=== PATIENT | male | born 1965 | race African-American/Black ===

== ENCOUNTER 2023-08-09 14:40 | Inpatient (IN) | payer MEDICARE, MEDICAID ==
--- NOTE | 2023-08-09 17:10 | ED ---
Psych HPI - General Chief Complaint: Psychiatric Symptoms Stated Complaint: Mental Health Eval Time Seen by Provider: 08/09/23 14:50 Source: patient, EMS Mode of arrival: EMS - History of Present Illness Initial Comments: 58-year-old male who presents to the emergency department with delusional ideations. Patient being from [facility] that he has been evaluated and did require inpatient admission. Patient presents to the ER via EMS with a petition and CERT in hand. Patient has not been taking his medications. They state that he is delusional and thinks that the hospital is run by [facility]. Patient states that he has multiple lawsuits different organizations that he does not feel that he needs to be here. He admits to being homeless. Denies drug and alcohol use. Patient has history of hypertension but does not take his medications. - Related Data Home Medications Medication Instructions Recorded Confirmed Cyclobenzaprine [Flexeril] 10 mg PO Q8H PRN 08/09/23 08/09/23 Fluticasone Nasal [place] [Flonase 2 spray EA NOSTRIL DAILY 08/09/23 08/09/23 Nasal [place]] Promethazine 6.25MG/5Ml [Phenergan 25 mg PO DAILY 08/09/23 08/09/23 Syrup] Previous Rx's Medication Instructions Recorded QUEtiapine [SEROquel] 100 mg PO HS 15 Days #15 tab 08/14/23 Valproic Acid Oral Soln [Depakene 150 mg PO TID 15 Days #45 ml 08/14/23 Syrup] Allergies Allergy/AdvReac Type Severity Reaction Status Date / Time fluoxetine [From Prozac] Allergy Rash/Hives Verified 08/09/23 23:46 fluphenazine [From Prolixin] Allergy Rash/Hives Verified 08/09/23 23:46 risperidone [From Risperdal] Allergy Rash/Hives Verified 08/09/23 23:46 Review of Systems ROS Statement: Those systems with pertinent positive or pertinent negative responses have been documented in the HPI. ROS Other: All systems not noted in ROS Statement are negative. Past Medical History Past Medical History: Hypertension Additional Past Medical History / Comment(s): Heart diease History of Any Multi-Drug Resistant Organisms: None Reported Past Surgical History: No Surgical Hx Reported Past Psychological History: Bipolar, Schizoaffective Disorder Smoking Status: Current every day smoker Past Alcohol Use History: Daily Past Drug Use History: Cocaine - Past Family History Mother History Unknown: Yes General Exam Limitations: no limitations General appearance: alert, in no apparent distress Head exam: Present: atraumatic, normocephalic, normal inspection Eye exam: Present: normal appearance, PERRL, EOMI. Absent: scleral icterus, conjunctival injection, periorbital swelling ENT exam: Present: normal exam, mucous membranes moist Neck exam: Present: normal inspection. Absent: tenderness, meningismus, lymphadenopathy Respiratory exam: Present: normal lung sounds bilaterally. Absent: respiratory distress, wheezes, rales, rhonchi, stridor Cardiovascular Exam: Present: regular rate, normal rhythm, normal heart sounds. Absent: systolic murmur, diastolic murmur, rubs, gallop, clicks GI/Abdominal exam: Present: soft, normal bowel sounds. Absent: distended, tenderness, guarding, rebound, rigid Extremities exam: Present: normal inspection, full ROM, normal capillary refill. Absent: tenderness, pedal edema, joint swelling, calf tenderness Back exam: Present: normal inspection Neurological exam: Present: alert, oriented X3, CN II-XII intact Psychiatric exam: Present: agitated, other (delusional) Skin exam: Present: warm, dry, intact, normal color. Absent: rash Course Vital Signs 08/09/23 08/09/23 08/09/23 14:44 19:18 21:29 Temperature 97.4 F L Pulse Rate 57 L 84 74 Respiratory 16 18 18 Rate Blood Pressure 183/86 145/100 147/111 O2 Sat by Pulse 97 98 95 Oximetry 08/09/23 22:26 Temperature Pulse Rate 64 Respiratory 18 Rate Blood Pressure 151/97 O2 Sat by Pulse 97 Oximetry Medical Decision Making - Medical Decision Making Was pt. sent in by a medical professional or institution (, PA, BILLBOARD ERECTOR, urgent care, hospital, or fpc...) When possible be specific @ -Patient sent from [facility] Did you speak to anyone other than the patient for history (EMS, parent, family, police, friend...)? What history was obtained from this source @ -Spoke with EMS for history Did you review nursing and triage notes (agree or disagree)? Why? @ -I reviewed and agree with nursing and triage notes Were old charts reviewed (outside hosp., previous admission, EMS record, old EKG, old radiological studies, urgent care reports/EKG's, fpc records)? Report findings @ -I reviewed the chart that accompanies the patient from [facility]. Patient arrives with a petition and certification Differential Diagnosis (chest pain, altered mental status, abdominal pain women, abdominal pain men, vaginal bleeding, weakness, fever, dyspnea, syncope, headache, dizziness, GI bleed, back pain, seizure, CVA, palpatations, mental health, musculoskeletal)? @ -Differential Mental Health Depression, anxiety, bipolar, psychosis, schizophrenia, borderline personality, situational depression, adjustment disorder, behavioral disorder, brain tumor, malingering, substance abuse, encephalopathy, medication reaction, dementia, hypothyroidism, degenerative neurologic disorder, lupus.... This is not meant to be all-inclusive list EKG interpreted by me (3pts min.). @ -Not completed X-rays interpreted by me (1pt min.). @ -None done CT interpreted by me (1pt min.). @ -None done U/S interpreted by me (1pt. min.). @ -None done What testing was considered but not performed or refused? (CT, X-rays, U/S, labs)? Why? @ -None What meds were considered but not given or refused? Why? @ -None Did you discuss the management of the patient with other professionals (professionals i.e. , PA, BILLBOARD ERECTOR, lab, RT, psych nurse, social services analyst, field sales trainer, teacher, morale officer, director of casework)? Give summary @ -Spoke with the EPS nurse who will admit the patient to a floor Was smoking cessation discussed for >3mins.? @ -No Was critical care preformed (if so, how long)? @ -No Were there social determinants of health that impacted care today? How? (Homelessness, low income, unemployed, alcoholism, drug addiction, transportation, low edu. Level, literacy, decrease access to med. care, nursing home, rehab)? @ -No Was there de-escalation of care discussed even if they declined (Discuss DNR or withdrawal of care, Hospice)? DNR status @ -No What co-morbidities impacted this encounter? (DM, HTN, Smoking, COPD, CAD, Cancer, CVA, ARF, Chemo, Hep., AIDS, mental health diagnosis, sleep apnea, m orbid obesity)? @ -None Was patient admitted / discharged? Hospital course, mention meds given and route, prescriptions, significant lab abnormalities, going to OR and other pertinent info. @ -Upon arrival patient seen and evaluated in room 11. He does arrive with a petition and a certification. Patient does have hypertension and therefore I do administer hypertension medications. Patient is excepted to the floor Undiagnosed new problem with uncertain prognosis? @ -No Drug Therapy requiring intensive monitoring for toxicity (Heparin, Nitro, Insulin, Cardizem)? @ -No Were any procedures done? @ -No Diagnosis/symptom? @ -Acute delusional behavior Acute, or Chronic, or Acute on Chronic? @ -Acute Uncomplicated (without systemic symptoms) or Complicated (systemic symptoms)? @ -Complicated Side effects of treatment? @ -No Exacerbation, Progression, or Severe Exacerbation? @ -No Poses a threat to life or bodily function? How? (Chest pain, USA, DC, pneumonia, PE, COPD, DKA, ARF, appy, cholecystitis, CVA, Diverticulitis, Homicidal, Suicidal, threat to staff... and all critical care pts) @ -No - Lab Data Result diagrams: 08/10/23 11:55 08/10/23 11:55 Lab Results 08/09/23 Range/Units 15:50 SARS-CoV-2 (PCR) Not Detected (Not Detectd) Disposition Clinical Impression: Paranoid disorder Disposition: TRANSFER TO PSYCH HOSP/UNIT Condition: Stable Is patient prescribed a controlled substance at d/c from ED?: No
[2023-08-09] MEDS: LORazepam 1 MG TAB PO STA (19:18)
[2023-08-09] MEDS ORDERED: MAGNESIUM HYDROXIDE 2,400 MG/30 ML CUP PO PRN (19:30)
[2023-08-09] MEDS ORDERED: ACETAMINOPHEN TAB 325 MG TAB PO PRN (19:30)
[2023-08-09] MEDS ORDERED: OLANZapine 10 MG VIAL IM PRN (19:33)
[2023-08-09] MEDS: amLODIPine 10 MG TAB PO STA (20:24)
[2023-08-09] MEDS: amLODIPine 5 MG TAB PO STA (20:51)
[2023-08-09] MEDS: cloNIDine HCL 0.1 MG TAB PO STA (21:53)
--- NOTE | 2023-08-10 00:45 | P.PN ---
Progress Note - Text Progress Note Date: 08/10/23 Attempted to see the patient in the mental health unit at 2100 on 08/08. The patient refused to be seen or be evaluated.
[2023-08-10] MEDS: NICOTINE 14MG/24HR PATCH TRANSDERM SCH (09:04)
[2023-08-10] MEDS ORDERED: hydrOXYzine pamoate 25 MG CAP PO PRN (10:47)
[2023-08-10 12:36] LABS: Basophils % (A) 1 %; Eosinophils # (A) 0.2 k/uL (0-0.7); Eosinophils % (A) 5 %; HCT 41.1 % (39.0-53.0); Lymphocytes # (A) 1.6 k/uL (1.0-4.8); Lymphocytes % (A) 37 %; MCHC 31.6 g/dL (31.0-37.0); MCV 95.1 fL (80.0-100.0); Mean Platelet Volume 7.9; Monocytes # (A) 0.4 k/uL (0-1.0); Monocytes % (A) 8 %; Neutrophils # (A) 2.1 k/uL (1.3-7.7); Neutrophils % (A) 48 %; Platelet Count 200 k/uL (150-450); RBC 4.33 m/uL (4.30-5.90); RDW 14.2 % (11.5-15.5); WBC 4.3 k/uL (3.8-10.6)
[2023-08-10] MEDS: LORazepam 1 MG TAB PO PRN (12:40)
[2023-08-10 13:06] LABS: ALT 11 U/L (4-49); AST 15 U/L (17-59); African American GFR (CKD) >90 (>60 ml/min/1.73 sqM); Alkaline Phosphatase 65 U/L (38-126); Anion Gap 4 mmol/L; Blood Urea Nitrogen 13 mg/dL (9-20); Calcium 9.1 mg/dL (8.4-10.2); Carbon Dioxide 29 mmol/L (22-30); Chloride 107 mmol/L (98-107); Glucose 73 mg/dL (74-99); Non-African American GFR(CKD) >90 (>60 ml/min/1.73 sqM); Potassium 4.6 mmol/L (3.5-5.1); Sodium 140 mmol/L (137-145); Total Bilirubin 0.3 mg/dL (0.2-1.3); Total Protein 6.3 g/dL (6.3-8.2)
--- NOTE | 2023-08-10 13:33 | P.HP ---
Psychiatric H&P - . H&P Date: 08/10/23 History & Physical: Allergies Allergy/AdvReac Type Severity Reaction Status Date / Time fluoxetine [From Prozac] Allergy Rash/Hives Verified 08/09/23 23:46 fluphenazine [From Prolixin] Allergy Rash/Hives Verified 08/09/23 23:46 risperidone [From Risperdal] Allergy Rash/Hives Verified 08/09/23 23:46 Vital Signs Temp 98.0 F 08/09/23 23:30 Pulse 61 08/10/23 09:05 Resp 20 08/10/23 09:05 BP 133/88 08/10/23 09:05 Pulse Ox 99 08/09/23 23:30 FiO2 Intake & Output 08/09/23 08/10/23 08/10/23 18:59 06:59 18:59 Weight 79.379 kg 83.2 kg Laboratory Last Values WBC 4.3 k/uL (3.8-10.6) 08/10/23 11:55 RBC 4.33 m/uL (4.30-5.90) 08/10/23 11:55 Hgb 13.0 gm/dL (13.0-17.5) 08/10/23 11:55 Hct 41.1 % (39.0-53.0) 08/10/23 11:55 MCV 95.1 fL (80.0-100.0) 08/10/23 11:55 MCH 30.0 pg (25.0-35.0) 08/10/23 11:55 MCHC 31.6 g/dL (31.0-37.0) 08/10/23 11:55 RDW 14.2 % (11.5-15.5) 08/10/23 11:55 Plt Count 200 k/uL (150-450) 08/10/23 11:55 MPV 7.9 08/10/23 11:55 Neutrophils % 48 % 08/10/23 11:55 Lymphocytes % 37 % 08/10/23 11:55 Monocytes % 8 % 08/10/23 11:55 Eosinophils % 5 % 08/10/23 11:55 Basophils % 1 % 08/10/23 11:55 Neutrophils # 2.1 k/uL (1.3-7.7) 08/10/23 11:55 Lymphocytes # 1.6 k/uL (1.0-4.8) 08/10/23 11:55 Monocytes # 0.4 k/uL (0-1.0) 08/10/23 11:55 Eosinophils # 0.2 k/uL (0-0.7) 08/10/23 11:55 Basophils # 0.0 k/uL (0-0.2) 08/10/23 11:55 Sodium 140 mmol/L (137-145) 08/10/23 11:55 Potassium 4.6 mmol/L (3.5-5.1) 08/10/23 11:55 Chloride 107 mmol/L (98-107) 08/10/23 11:55 Carbon Dioxide 29 mmol/L (22-30) 08/10/23 11:55 Anion Gap 4 mmol/L 08/10/23 11:55 BUN 13 mg/dL (9-20) 08/10/23 11:55 Creatinine 0.87 mg/dL (0.66-1.25) 08/10/23 11:55 Est GFR (CKD-EPI)AfAm >90 (>60 ml/min/1.73 sqM) 08/10/23 11:55 Est GFR (CKD-EPI)NonAf >90 (>60 ml/min/1.73 sqM) 08/10/23 11:55 Glucose 73 mg/dL (74-99) L 08/10/23 11:55 Calcium 9.1 mg/dL (8.4-10.2) 08/10/23 11:55 Total Bilirubin 0.3 mg/dL (0.2-1.3) 08/10/23 11:55 AST 15 U/L (17-59) L 08/10/23 11:55 ALT 11 U/L (4-49) 08/10/23 11:55 Alkaline Phosphatase 65 U/L (38-126) 08/10/23 11:55 Total Protein 6.3 g/dL (6.3-8.2) 08/10/23 11:55 Albumin 4.0 g/dL (3.5-5.0) 08/10/23 11:55 TSH 1.770 mIU/L (0.465-4.680) 08/10/23 11:55 SARS-CoV-2 (PCR) Not Detected (Not Detectd) 08/09/23 15:50 08/10/23 13:32 Psychiatric Evaluation Identifying Data: Mr. Cunningham is 58 years old, single Black Male, who is currently homeless. Chief Complaint: I have multiple law suits all over the country History of Psychiatric Illness- The patient noted that [facility] and [facility] Santiago. He noted that he never said he was homeless but he sent him here. The patient noted that he just wanted to go to sober support so he could smoke. He noted seeing Dr. Santiago twice. He believes that Dr. Santiago is jealous of him. The patient noted that he was taking Seroquel, Depakote, Xanax, Adderall, and Valium. He has not taken his medications for months. He stated that he was going to [facility] for his treatment. He noted that a [employer] shipping point inspector is trying to kill him. The patient was a poor historian. He could not give a proper chronological history. He was preoccupied with law suits and being victimized. The patient noted, I had a chemical imbalance since age 17, a oriental doctor told me. He noted that he has been hospitalized to psychiatric hospital at least 15 to 20 times. The last admission was in [facility] a month ago. The patient noted that his first admission was at age 22. He noted that he was at [facility] few times. He was also at [facility] in [place] and [facility]. He stated that he has been told that he has psychosis but he has been on TV and now, I have all these cases. Past medication history: Prolixin, Prozac, Haldol, Geodon, Zyprexa. He stated all the medication he takes gives him allergy. Past Psychiatric History: Leading questions: The patient denied /admitted to Depression and Anxiety. Denied SI or HI. Denied symptoms consistent with psychosis Drugs and alcohol history: Crack, Alcohol marijuana Tobacco use: Smokes half a pack a day. Past Medical history: HTN Family History of Psychiatric Disorder: The patient noted we all are crazy in my family. Social History and Family History: The patient was born and raised in [place], [place]. He grew-up 5 siblings. He has GED. His longest job was for 2 years in the [employer] department of [employer]. The patient noted that he has been in correction twice for possession of crack. OTC: None. Allergies: As per EMR. Objective: MSE: Alert and attentive. Orientation times three Dressed and Groomed: Appropriately in hospital clothes. Pleasant and cooperative. Psychomotor Activity: Normal. Speech: Normal in tone, quality, Hyperverbal. Mood: I am alright Affect: Excited and suspicious. SI or HI: None. Perceptual disturbance: None. Thought Content: He is paranoid and grandiose. No other delusional thinking noted. Thought Process: Normal. Cognition: Intact Judgment and Insight: Poor AIMS: Normal Labs: Available labs reviewed. Diagnosis: Paranoid Disorder, Persecutory type. Plan and Recommendations: Continue current Medications. Add Ativan 0.5 mg po tid prn. Hydroxyzine 25 mg po prn qid, Seroquel 00 mg po qhs, Depakote Monitor MS and side effects of medications and adjust medications accordingly. Provide supportive psychotherapy and psychoeducation. The patient provided psychoeducation. The patient provided with substance abuse counselling and advised to attend AA/NA Smoke cessation therapy. The patient to attend [facility]. CBC with Diff, CMP, TSH, Lipid Profile, HbA1c, EKG, Medication Consent with explanation of risk/benefits and side effects: Explained and obtained.
[2023-08-10 19:15] LABS: Chol/HDL Ratio 2.57 Ratio; LDL Cholesterol,Calculated 77.4 mg/dL (0.0-131.0)
[2023-08-10] MEDS: QUEtiapine 100 MG TAB PO SCH (21:11)
[2023-08-10] MEDS: VALPROIC ACID ORAL SOLN 250 MG/5 ML CUP PO SCH (21:11)
[2023-08-11] MEDS: IBUPROFEN 600 MG TAB PO PRN (07:06)
--- NOTE | 2023-08-11 15:34 | P.PN ---
Progress Note - Text Progress Note Date: 08/11/23 Follow-up Mediation Review Chief Complaint: I want enema Subjective: The patient that he is not getting enema. He stated that he takes his own enema. The patient redirected and suggested to take the Milk of magnesia instead. The patient agreed. He remains with writing his petitions and complaints. He [facility] complaint [facility]. He has also filed several complaints and law suits in different cities as per patient. He showed me lots of his complains. 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 He stated, I want that new medication, which has a long name. It will be very good for me. The patient has been attending the groups. The participation is fair. His interaction with staff and peers is good. The patient is compliant with treatment recommendations. Leading questions: The patient denied Depression and Anxiety. Denied SI or HI. Denied symptoms consistent with psychosis. Sleep and Appetite: Fair. Change in family/ living/job/financial/daily routine: No change. Change in medical condition: No change. Change in medications: No change. Side effects from Medications: None. Objective- MSE: Alert and attentive. Orientation times three. Dressed and Groomed: Appropriately. Pleasant and cooperative. Psychomotor Activity: Normal. Speech: Normal in tone, quality, and quantity. Mood: I am good Affect: Consistent with mood. SI or HI: None. Perceptual disturbance: None. Thought Content: The patient systematized persecutory and grandiose delusions. Thought Process: Normal. Cognition: Intact Judgment and Insight: His operational judgement is good. His insight in to illness is poor. AIMS: Normal. Labs: No new labs. Diagnosis: No change. Plan and Recommendations: Continue current Medications. Monitor MS and side effects of medications and adjust medications accordingly. Provide supportive psychotherapy. The patient provided psychoeducation and advised The patient provided Substance abuse counseling. Smoke cessation therapy. The patient to attend hummel activities. EKG, Medication Consent with explanation of risk/benefits and side effects: Explained and obtained.
--- NOTE | 2023-08-11 16:31 | P.MDCNMH ---
History of Present Illness H&P Date: 08/11/23 Patient is a 58-year-old male with suppose a history of history of paranoia currently in our mental health unit. Sound physicians consulted for medical evaluation. Patient claims that he has multiple medical problems including cholelithiasis, bladder disorder, BPH and significant muscle pain. However, he claims that he has not taken any medications anytime recently. He is demanding certain medications to be restarted. He claims that he has chest pain, shortness of breath, abdominal pain, constipation/diarrhea, urinary complaints. WBC was 4.3, hemoglobin 13.0, platelet 200, creatinine 0.87, A1c 5.7, total bili 0.3, AST 15, ALT 11, ALP 65, total cholesterol 175, LDL 77, TSH 1.77. Vital signs reviewed, patient was hypertensive on initial presentation, now within normal limits. Pertinent positives and negatives as discussed in HPI, a complete review of systems was performed and all other systems are negative. Patient seen and examined at bedside. Vital signs reviewed General: nontoxic, no distress, appears at stated age Derm: warm, dry Head: atraumatic, normocephalic, symmetric Eyes: EOMI, no lid lag, anicteric sclera, pupils equal round reactive to light ENT: Nose and ears atraumatic Neck: No thyromegaly, supple Mouth: no lip lesion, mucus membranes moist Cardiovascular: S1S2 reg, no murmur, no edema Lungs: clear to auscultation bilateral, no rhonchi, no rales, no wheeze, no accessory muscle use Abdominal: soft, nontender to palpation, no guarding, no appreciable organomegaly Ext: no gross muscle atrophy, muscle strength muscle strength 5 out of 5 in all 4 extremities, no contractures Neuro: CN II-XII grossly intact Psych: Alert, oriented, appropriate affect, has been demanding Assessment/Plan: Paranoid disorder -Being managed by psychiatry, on valproic acid 150 3 times daily and Seroquel 100 nightly -Also on Zyprexa as needed, Ativan as needed, hydroxyzine as needed History of cholelithiasis? -No concern for cholecystitis -Requested nurse to obtain records from recent visit to outside hospital Generalized pain -Avoid narcotics -Continue Tylenol as needed, ibuprofen as needed Urinary symptoms -Patient recently had bladder test by urology? -Urinalysis has been ordered, pending Thank you for allowing us to participate in the care of this pleasant patient. Do not hesitate to contact us with questions. Someone can be reached from the [facility] hospitalist group all hours of the day at [phone] or via [employer]. Past Medical History Past Medical History: Hypertension Additional Past Medical History / Comment(s): Heart diease, Gallstones, "Black cyst in chest" History of Any Multi-Drug Resistant Organisms: None Reported Past Surgical History: No Surgical Hx Reported Past Anesthesia/Blood Transfusion Reactions: No Reported Reaction Smoking Status: Current every day smoker - Past Family History Mother History Unknown: Yes Medications and Allergies Home Medications Medication Instructions Recorded Confirmed Type Cyclobenzaprine [Flexeril] 10 mg PO Q8H PRN 08/09/23 08/09/23 History Fluticasone Nasal [place] [Flonase 2 spray EA NOSTRIL DAILY 08/09/23 08/09/23 History Nasal [place]] Ibuprofen [Motrin] 800 mg PO Q6H PRN 08/09/23 08/09/23 History Promethazine 6.25MG/5Ml [Phenergan 25 mg PO DAILY 08/09/23 08/09/23 History Syrup] Allergies Allergy/AdvReac Type Severity Reaction Status Date / Time fluoxetine [From Prozac] Allergy Rash/Hives Verified 08/09/23 23:46 fluphenazine [From Prolixin] Allergy Rash/Hives Verified 08/09/23 23:46 risperidone [From Risperdal] Allergy Rash/Hives Verified 08/09/23 23:46 Physical Exam Vitals: Vital Signs Temp Pulse Resp BP Pulse Ox 08/11/23 06:45 98.8 F 84 16 133/89 100 Cranial Nerve Examination - Cranial Nerves Cranial Nerve II- Optic: Intact Cranial Nerve III- Oculomotor: Intact Cranial Nerve IV- Trochlear: Intact Cranial Nerve V- Trigeminal: Intact Cranial Nerve - Abducens: Intact Cranial Nerve VII- Facial: Intact Cranial Nerve VIII- Auditory: Intact Cranial Nerve IX- Glossopharyngeal: Intact Cranial Nerve X- Vagus: Intact Cranial Nerve XI- Accessory: Intact Cranial Nerve XII- Hypoglossal: Intact Results CBC & Chem 7: 08/10/23 11:55 08/10/23 11:55 Labs: Abnormal Lab Results - Last 24 Hours (Table) 08/10/23 Range/Units 11:55 HDL Cholesterol 68.20 H (40.00-60.00) mg/dL
[2023-08-11] MEDS: VALPROIC ACID ORAL SOLN 250 MG/5 ML CUP PO SCH (16:50)
[2023-08-12 03:51] VITALS: RESP 17; TEMP 97.2
--- NOTE | 2023-08-12 17:12 | P.PN ---
Progress Note - Text Progress Note Date: 08/12/23 Interval History: Patient was seen wandering the hallways and was directable and agreeable to lise guidry with sports writer. He asked if this sports writer knew the addresses of various people because "I want to write to them." This included a senior web applications developer and patient is tangential as he describes that he needs to discuss "bankruptcy, lawsuits, this senior web applications developer trying to kill me ". Patient is fixated on being put on increased dose of Ativan PRN and being placed on Neurontin or Ambien. Patient displays symptoms consistent with seeking medications. He was informed that he will not be receiving any of those. He then requests to be given a giant enema and was told he can try PO med first. Patient states that he is doing "good ". He reports some trouble with sleep and is agreeable with increase in Seroquel. At this time patient denies any suicidal or homicidal ideations, intent or plan. Patient denies any auditory, visual hallucinations and denies any paranoia. Patient denies any side effects from the medications and has been compliant with meds. Vital Signs Temp 97.2 F L 08/12/23 03:50 Pulse 93 08/12/23 03:50 Resp 17 08/12/23 03:50 BP 128/95 08/12/23 03:50 Pulse Ox 95 08/12/23 03:50 FiO2 Mental Status Exam: Alert and attentive. Orientation times three. Dressed and Groomed: Appropriately. Pleasant and cooperative. Psychomotor Activity: Normal. Speech: Normal in tone, quality, and quantity. Mood: I am good Affect: Consistent with mood. SI or HI: None. Perceptual disturbance: None. Thought Content: The patient systematized persecutory and grandiose delusions. Thought Process: Normal. Cognition: Intact Judgment and Insight: His operational judgement is good. His insight in to illness is poor. Assessment Psychotic disorder, unspecified Hx of polysubstance use Plan: -Patient continues to meet criteria for inpatient psychiatric admission for symptom stabilization and safety. -Medications: Seroquel increase to 200 mg qHS for psychosis and sleep Depakote 150 mg TID -When necessary Ativan and Zyprexa for agitation/aggression. -NRT - [nicotine patch] -SW on board for discharge planning. Encouraged the patient to participate in milieu.
[2023-08-12] MEDS: polyethylene glycoL 3350 17 GM POWD.PACK PO SCH (17:23)
[2023-08-12] MEDS: QUEtiapine 100 MG TAB PO SCH (21:50)
[2023-08-12] MEDS: OLANZapine 5 MG TAB PO PRN (21:54)
[2023-08-13 07:07] VITALS: BP 139/99; PULSE 66
--- NOTE | 2023-08-13 14:07 | P.PN ---
Progress Note - Text Progress Note Date: 08/13/23 Interval History: Patient was seen wandering the hallways and was directable and agreeable to lise guidry with fiction and nonfiction writer prose. He was seen writing a lot on several pieces of paper and when asked about this, patient showed 1 paper to this provider. It contained concerns about a circuit judge participating in witchcraft and patient says he is concerned about mind reading. However, patient minimizes and says "I am fine ". He asks if he can be given increased dose of Ativan, started on Xanax, or added on Valium. He is calm when he is told that this is unable to be done. He denies any concerns with bowel movements today. He reports fair sleep and appetite. At this time patient denies any suicidal or homicidal ideations, intent or plan. Patient denies any auditory, visual hallucinations and denies any paranoia. Patient denies any side effects from the medications and has been compliant with meds. Vital Signs Temp 97.2 F L 08/12/23 03:50 Pulse 66 08/13/23 07:06 Resp 17 08/12/23 03:50 BP 139/99 08/13/23 07:06 Pulse Ox 95 08/12/23 03:50 FiO2 Mental Status Exam: Alert and attentive. Orientation times three. Dressed and Groomed: Appropriately. Pleasant and cooperative. Psychomotor Activity: Normal. Speech: Normal in tone, quality, and quantity. Mood: I am fine Affect: Consistent with mood. SI or HI: None. Perceptual disturbance: None. Thought Content: The patient systematized persecutory and grandiose delusions. Thought Process: Normal. Cognition: Intact Judgment and Insight: Poor judgement. His insight in to illness is poor. Assessment Psychotic disorder, unspecified Hx of polysubstance use Plan: -Patient continues to meet criteria for inpatient psychiatric admission for symptom stabilization and safety. -Medications: Increase Seroquel to 300 mg qHS for psychosis and sleep Depakote 150 mg TID -When necessary Ativan and Zyprexa for agitation/aggression. -NRT - [nicotine patch] -SW on board for discharge planning. Encouraged the patient to participate in milieu.
[2023-08-13 16:57] LABS: Appearance,Urine Clear (Clear); Bilirubin,Urine Negative (Negative); Blood,Urine Negative (Negative); Color,Urine Colorless; Glucose,Urine (UA) Negative (Negative); Ketones,Urine Negative (Negative); Leukocyte Esterase,Urine Negative (Negative); Nitrite,Urine Negative (Negative); PH, Urine 7.5 (5.0-8.0); Protein,Urine Negative (Negative); Specific Gravity,Urine 1.011 (1.001-1.035); Urobilinogen,Urine <2.0 mg/dL (<2.0)
[2023-08-13] MEDS: QUEtiapine 100 MG TAB PO SCH (22:28)
[2023-08-13 23:16] LABS: Urine Alcohol Negative (Negative); Urine Barbiturate Negative (Negative); Urine Cocaine Negative (Negative); Urine Methadone Negative (Negative); Urine Opiates Negative (Negative); Urine Phencyclidine Negative (Negative)
[2023-08-14] MEDS: TAMSULOSIN 0.4 MG CAP.ER.24H PO SCH (00:30)
[2023-08-14] MEDS: MAG HYDROX/AL HYDROX/SIMETH 355 ML BOTTLE PO PRN (09:31)
--- NOTE | 2023-08-14 16:55 | P.DS ---
Providers Date of admission: 08/09/23 19:26 Expected date of discharge: 08/14/23 Attending physician: Harinder Lyle MD Consults: 08/09/23 19:30 Consult Physician Routine Consulting Provider: Mayela Barry Consult Reason/Comments: H&P Do you want consulting provider notified?: Yes Primary care physician: Stated None - Discharge Diagnosis(es) (1) Paranoid disorder Status: Acute Priority: High Hospital Course: Discharge Summary HPI: Identifying Data: Mr. Cunningham is 58 years old, single Black Male, who is currently homeless. Chief Complaint: I have multiple law suits all over the [place] History of Psychiatric Illness- The patient noted that he [facility] and saw Dr. Santiago. He noted that he never said he was homeless but he sent him here. The patient noted that he just wanted to go to sober support so he could smoke. He noted seeing Dr. Santiago twice. He believes that Dr. Santiago is jealous of him. The patient noted that he was taking Seroquel, Depakote, Xanax, Adderall, and Valium. He has not taken his medications for months. He stated that he was going to [facility] for his treatment. He noted that a [place] bending press operator is trying to kill him. The patient was a poor historian. He could not give a proper chronological history. He was preoccupied with law suits and being victimized. The patient noted, I had a chemical imbalance since age 17, a oriental doctor told me. He noted that he has been hospitalized to psychiatric hospital at least 15 to 20 times. The last admission was in [facility] a month ago. The patient noted that his first admission was at age 22. He noted that he was at [facility] few times. He was also at [facility] in [place] and [facility]. He stated that he has been told that he has psychosis but he has been on TV and now, I have all these cases. Past medication history: Prolixin, Prozac, Haldol, Geodon, Zyprexa. He stated all the medication he takes gives him allergy. Past Psychiatric History: Leading questions: The patient denied /admitted to Depression and Anxiety. Denied SI or HI. Denied symptoms consistent with psychosis Drugs and alcohol history: Crack, Alcohol marijuana Tobacco use: Smokes half a pack a day. Hospital Course: After admission, the patient was involved in pharmacotherapy, hummel milieu, and individual psychodynamic psychotherapy. The patient was started on Depakene oral solution. And Seroquel. The dose was titrated to obtain the desire effects. The patient tolerated medications well without any side effects. The patient was also involved in hummel activities. The patient attended the groups and participated well. The patient interacted with peers and staff well. The patient slowly started showing improvement. The hospital course was uneventful. The patient symptoms of depression, suicidal and homicidal ideations abated. The psychosis improved. The patient was stable to be discharged to out-patient care. The patient did not have any guns or weapons in possession at home. MSE: Alert and attentive. Orientation times three Dressed and Groomed: Appropriately in hospital clothes. Pleasant and cooperative. Psychomotor Activity: Normal. Speech: Normal in tone, quality, Hyperverbal. Mood: I am alright Affect: Excited and suspicious. SI or HI: None. Perceptual disturbance: None. Thought Content: He is paranoid and grandiose. No other delusional thinking noted. Thought Process: Normal. Cognition: Intact Judgment and Insight: Poor AIMS: Normal Diagnosis: Paranoid Disorder, Persecutory type. Plan: The patient to be discharged today. The patient has attained good improvement since admission. He is stable to be followed as an outpatient. The patient is not suicidal or Homicidal. He does not pose any harm to self or others. The patient remains at a greater risk of self-harm or harm to others than general population on a chronic basis due to psychiatric illness and substance abuse. The patient will continue taking following medication post discharge. The importance of medication compliance and maintaining regular appointments at psychiatric out-pt and PCP clinic was explained and encouraged. The patient was also advised to seek alcohol counseling and attend AA/NA meetings. The understood and agreed with the recommendations. fiber glass worker to arrange for and conduct family meeting to ensure safety upon discharge and answer any questions. The social worker psychiatric to arrange for patients follow-up appointments at [facility] for psychiatric care along with follow-up with PCP. The patient provided psychoeducation. Advised to call 911 or go to nearest ED or call this hospital in case of acute worsening of symptomatology, severe side effects or having suicidal, homicidal thoughts and feeling unsafe at home. Patient Condition at Discharge: Stable Plan - Discharge Summary Discharge Rx Participant: No New Discharge Prescriptions: New Valproic Acid Oral Soln [Depakene Syrup] 150 mg PO TID 15 Days #45 ml QUEtiapine [SEROquel] 100 mg PO HS 15 Days #15 tab Continue Fluticasone Nasal [place] [Flonase Nasal [place]] 2 spray EA NOSTRIL DAILY Promethazine 6.25MG/5Ml [Phenergan Syrup] 25 mg PO DAILY Cyclobenzaprine [Flexeril] 10 mg PO Q8H PRN PRN Reason: Muscle Spasm Discontinued Ibuprofen [Motrin] 800 mg PO Q6H PRN PRN Reason: Pain Discharge Medication List Cyclobenzaprine [Flexeril] 10 mg PO Q8H PRN 08/09/23 [History] Fluticasone Nasal [place] [Flonase Nasal [place]] 2 spray EA NOSTRIL DAILY 08/09/23 [History] Promethazine 6.25MG/5Ml [Phenergan Syrup] 25 mg PO DAILY 08/09/23 [History] QUEtiapine [SEROquel] 100 mg PO HS 15 Days #15 tab 08/14/23 [Rx] Valproic Acid Oral Soln [Depakene Syrup] 150 mg PO TID 15 Days #45 ml 08/14/23 [Rx] Follow up Appointment(s)/Referral(s): Division, [facility] [Other] - 1 Week () Services, [facility] [Other] - 1 Week (Faxed packet to agency, they will call social worker psychiatric with date and time of appointment. Social work will call patient with appointment. ) Patient Instructions/Handouts: How to Stop Smoking (DC), Paranoid Personality Disorder (DC) Activity/Diet/Wound Care/Special Instructions: Avoid the use of street drugs and alcohol. Take all medications as prescribed. When you are in need of refills on your medications, please contact your medical provider and/or outpatient psychiatrist/provider to have this done. Please go to your scheduled outpatient appointment for aftercare treatment. If symptoms return or become worse, call the crisis line at and/or go to the nearest emergency room for evaluation. National Suicide Hotline 988 Discharge Disposition: HOME SELF-CARE
== END 2023-08-14 15:32 | disposition home or self-care (01) | DRG 885 ==
LOC: EC 14:40 → 3MHU 19:26
PROVIDERS: ADMIT Psychiatry & Neurology Psychiatry; ATTEND Psychiatry & Neurology Psychiatry
DX: F22 Delusional disorders (principal); Z59.00 Homelessness unspecified; Z91.148 Patient's other noncompliance with medication regimen for other reason; F10.11 Alcohol abuse, in remission; F14.10 Cocaine abuse, uncomplicated; F32.A Depression, unspecified; I10 Essential (primary) hypertension; F12.11 Cannabis abuse, in remission; Z11.52 Encounter for screening for COVID-19; F41.9 Anxiety disorder, unspecified; N40.0 Benign prostatic hyperplasia without lower urinary tract symptoms; K59.00 Constipation, unspecified; F17.210 Nicotine dependence, cigarettes, uncomplicated; Z71.6 Tobacco abuse counseling; Z79.899 Other long term (current) drug therapy; Z59.12 Inadequate housing utilities; Z59.41 Food insecurity; Z59.82 Transportation insecurity; Z63.8 Other specified problems related to primary support group; Z71.51 Drug abuse counseling and surveillance of drug abuser; Z71.41 Alcohol abuse counseling and surveillance of alcoholic; Z88.8 Allergy status to other drugs, medicaments and biological substances
CPT/HCPCS: 80053; 80061; 80306; 81003; 82075; 83036; 84443; 85025; 87635; 93005; 99285

== ENCOUNTER 2023-09-01 13:32 | Emergency (ER) | payer MEDICARE, MEDICAID ==
--- NOTE | 2023-09-01 14:37 | ED ---
General Adult HPI - General Source: patient, RN notes reviewed, old records reviewed Mode of arrival: ambulatory Limitations: no limitations <Roberto Echeverria - Last Filed: 09/01/23 17:41> <Yolis Loco - Last Filed: 09/02/23 06:19> - General Chief complaint: Psychiatric Symptoms Stated complaint: mental health Time Seen by Provider: 09/01/23 13:36 - History of Present Illness Initial comments: 58-year-old male presenting with suicidal and homicidal ideation. Patient does appear paranoid he has a long list of medications he would like prescribed many of which are not actual medications. Patient is delusional as well stating that he recently found out breathing that was worth 100 or $200,000 that he is waiting for pay out. He does admit to crack cocaine use. (Roberto Echeverria) - Related Data Home Medications Medication Instructions Recorded Confirmed Cyclobenzaprine [Flexeril] 10 mg PO Q8H PRN 08/09/23 09/01/23 Fluticasone Nasal [place] [Flonase 2 spray EA NOSTRIL DAILY 08/09/23 09/01/23 Nasal [place]] Promethazine 6.25MG/5Ml [Phenergan 25 mg PO DAILY 08/09/23 09/01/23 Syrup] Dicyclomine [Bentyl] 20 mg PO Q6H PRN 09/01/23 09/01/23 Spironolactone [Aldactone] 50 mg PO DAILY 09/01/23 09/01/23 Valproic Acid Oral Soln [Depakene 125 mg PO BID 09/01/23 09/01/23 Syrup] allopurinoL 100 mg PO DAILY 09/01/23 09/01/23 Previous Rx's Medication Instructions Recorded QUEtiapine [SEROquel] 100 mg PO HS 15 Days #15 tab 08/14/23 Allergies Allergy/AdvReac Type Severity Reaction Status Date / Time fluoxetine [From Prozac] Allergy Rash/Hives Verified 09/01/23 18:51 fluphenazine [From Prolixin] Allergy Rash/Hives Verified 09/01/23 18:51 risperidone [From Risperdal] Allergy Rash/Hives Verified 09/01/23 18:51 Review of Systems ROS Other: All systems not noted in ROS Statement are negative. <Roberto Echeverria Amie - Last Filed: 09/01/23 17:41> ROS Other: All systems not noted in ROS Statement are negative. <PatricbiKasiaYolis Janet - Last Filed: 09/02/23 06:19> ROS Statement: Those systems with pertinent positive or pertinent negative responses have been documented in the HPI. Past Medical History Past Medical History: Hypertension Additional Past Medical History / Comment(s): Heart diease History of Any Multi-Drug Resistant Organisms: None Reported Past Surgical History: No Surgical Hx Reported Past Anesthesia/Blood Transfusion Reactions: No Reported Reaction Past Psychological History: Bipolar, Schizoaffective Disorder Smoking Status: Current every day smoker Past Alcohol Use History: Daily Past Drug Use History: Cocaine - Past Family History Mother History Unknown: Yes <Roberto Echeverria - Last Filed: 09/01/23 17:41> General Exam Limitations: no limitations General appearance: alert, anxious Head exam: Present: atraumatic, normocephalic Eye exam: Present: normal appearance Neck exam: Present: normal inspection. Absent: tenderness, meningismus Respiratory exam: Present: normal lung sounds bilaterally. Absent: respiratory distress, wheezes Cardiovascular Exam: Present: regular rate, normal rhythm GI/Abdominal exam: Present: soft. Absent: distended, tenderness, guarding Neurological exam: Present: alert, oriented X3, CN II-XII intact, normal gait. Absent: motor sensory deficit Psychiatric exam: Present: agitated, homicidal ideation, suicidal ideation (Paranoid, delusional) Skin exam: Present: warm, dry <Roberto Echeverria - Last Filed: 09/01/23 17:41> Course Vital Signs 09/01/23 13:36 Temperature 98 F Pulse Rate 71 Respiratory 16 Rate Blood Pressure 186/111 O2 Sat by Pulse 99 Oximetry Medical Decision Making <Roberto Echeverria Amie - Last Filed: 09/01/23 17:41> - Lab Data Result diagrams: 09/02/23 01:58 09/02/23 01:58 <BeronicaYolis Janet - Last Filed: 09/02/23 06:19> - Medical Decision Making Was pt. sent in by a medical professional or institution (, PA, SALES REPRESENTATIVE GAS SERVICE, urgent care, hospital, or jail...) When possible be specific @ -No Did you speak to anyone other than the patient for history (EMS, parent, family, police, friend...)? What history was obtained from this source @ -No Did you review nursing and triage notes (agree or disagree)? Why? @ -I reviewed and agree with nursing and triage notes Were old charts reviewed (outside hosp., previous admission, EMS record, old EKG, old radiological studies, urgent care reports/EKG's, jail records)? Report findings @ -No old charts were reviewed Differential Mental Health Depression, anxiety, bipolar, psychosis, schizophrenia, borderline personality, situational depression, adjustment disorder, behavioral disorder, brain tumor, malingering, substance abuse, encephalopathy, medication reaction, dementia, hypothyroidism, degenerative neurologic disorder, lupus.... This is not meant to be all-inclusive list EKG interpreted by me (3pts min.). @ -As above X-rays interpreted by me (1pt min.). @ -None done CT interpreted by me (1pt min.). @ -None done U/S interpreted by me (1pt. min.). @ -None done What testing was considered but not performed or refused? (CT, X-rays, U/S, labs)? Why? @ -None What meds were considered but not given or refused? Why? @ -None Did you discuss the management of the patient with other professionals (professionals i.e. , PA, SALES REPRESENTATIVE GAS SERVICE, lab, RT, psych nurse, social science research assistant, drafter geological, teacher, forest fire officer, pillowcase turner)? Give summary @ -No Was smoking cessation discussed for >3mins.? @ -No Was critical care preformed (if so, how long)? @ -No Were there social determinants of health that impacted care today? How? (Homelessness, low income, unemployed, alcoholism, drug addiction, transportation, low edu. Level, literacy, decrease access to med. care, detention, rehab)? @ -No Was there de-escalation of care discussed even if they declined (Discuss DNR or withdrawal of care, Hospice)? DNR status @ -No What co-morbidities impacted this encounter? (DM, HTN, Smoking, COPD, CAD, Cancer, CVA, ARF, Chemo, Hep., AIDS, mental health diagnosis, sleep apnea, morbid obesity)? @ -None Was patient admitted / discharged? Hospital course, mention meds given and route, prescriptions, significant lab abnormalities, going to OR and other pertinent info. @ -Medically cleared awaiting EPS evaluation. Undiagnosed new problem with uncertain prognosis? @ -No Drug Therapy requiring intensive monitoring for toxicity (Heparin, Nitro, Insulin, Cardizem)? @ -No Were any procedures done? @ -No Diagnosis/symptom? @ -Acute psychosis, suicidal ideation Acute, or Chronic, or Acute on Chronic? @ -acute Uncomplicated (without systemic symptoms) or Complicated (systemic symptoms)? @ -Default Side effects of treatment? @ -No Exacerbation, Progression, or Severe Exacerbation? @ -No Poses a threat to life or bodily function? How? (Chest pain, USA, SC, pneumonia, PE, COPD, DKA, ARF, appy, cholecystitis, CVA, Diverticulitis, Homicidal, Suicidal, threat to staff... and all critical care pts) @ -No (Roberto Echeverria) Patient was evaluated by myself. He admits to crack cocaine use. He is extremely paranoid. He makes multiple nonsensical statements in regards to "smoking crack with babies in it". Patient is very tangential. He is evaluated by EPS and requires admission. He is noncompliant with his medications. Laboratory studies are obtained. I did fill out the certification. Patient is currently pending transfer (Yolis Loco) - Lab Data Lab Results 09/01/23 09/01/23 09/01/23 Range/Units 13:47 13:47 18:48 WBC (3.8-10.6) k/uL RBC (4.30-5.90) m/uL Hgb (13.0-17.5) gm/dL Hct (39.0-53.0) % MCV (80.0-100.0) fL MCH (25.0-35.0) pg MCHC (31.0-37.0) g/dL RDW (11.5-15.5) % Plt Count (150-450) k/uL MPV Neutrophils % % Lymphocytes % % Monocytes % % Eosinophils % % Basophils % % Neutrophils # (1.3-7.7) k/uL Lymphocytes # (1.0-4.8) k/uL Monocytes # (0-1.0) k/uL Eosinophils # (0-0.7) k/uL Basophils # (0-0.2) k/uL Sodium (137-145) mmol/L Potassium (3.5-5.1) mmol/L Chloride (98-107) mmol/L Carbon Dioxide (22-30) mmol/L Anion Gap mmol/L BUN (9-20) mg/dL Creatinine (0.66-1.25) mg/dL Est GFR (CKD-EPI)AfAm (>60 ml/min/1.73 sqM) Est GFR (CKD-EPI)NonAf (>60 ml/min/1.73 sqM) Glucose (74-99) mg/dL Calcium (8.4-10.2) mg/dL Total Bilirubin (0.2-1.3) mg/dL AST (17-59) U/L ALT (4-49) U/L Alkaline Phosphatase (38-126) U/L Total Protein (6.3-8.2) g/dL Albumin (3.5-5.0) g/dL Urine Color Light Yellow Urine Appearance Clear (Clear) Urine pH 6.5 (5.0-8.0) Ur Specific [place] 1.017 (1.001-1.035) Urine Protein Negative (Negative) Urine Glucose (UA) Negative (Negative) Urine Ketones Negative (Negative) Urine Blood Negative (Negative) Urine Nitrite Negative (Negative) Urine Bilirubin Negative (Negative) Urine Urobilinogen <2.0 (<2.0) mg/dL Ur Leukocyte Esterase Negative (Negative) Urine Opiates Screen Not Detected (NotDetected) Ur Oxycodone Screen Not Detected (NotDetected) Urine Methadone Screen Not Detected (NotDetected) Ur Barbiturates Screen Not Detected (NotDetected) U Tricyclic Antidepress Not Detected (NotDetected) Ur Phencyclidine Scrn Not Detected (NotDetected) Ur Amphetamines Screen Not Detected (NotDetected) U Methamphetamines Scrn Not Detected (NotDetected) U Benzodiazepines Scrn Not Detected (NotDetected) Urine Cocaine Screen Detected H (NotDetected) U Marijuana (THC) Screen Not Detected (NotDetected) SARS-CoV-2 (PCR) Not Detected (Not Detectd) 09/02/23 09/02/23 Range/Units 01:58 01:58 WBC 5.9 (3.8-10.6) k/uL RBC 4.42 (4.30-5.90) m/uL Hgb 14.2 (13.0-17.5) gm/dL Hct 41.6 (39.0-53.0) % MCV 94.1 (80.0-100.0) fL MCH 32.2 (25.0-35.0) pg MCHC 34.2 (31.0-37.0) g/dL RDW 14.6 (11.5-15.5) % Plt Count 218 (150-450) k/uL MPV 8.1 Neutrophils % 38 % Lymphocytes % 47 % Monocytes % 7 % Eosinophils % 5 % Basophils % 1 % Neutrophils # 2.3 (1.3-7.7) k/uL Lymphocytes # 2.8 (1.0-4.8) k/uL Monocytes # 0.4 (0-1.0) k/uL Eosinophils # 0.3 (0-0.7) k/uL Basophils # 0.1 (0-0.2) k/uL Sodium 140 (137-145) mmol/L Potassium 4.3 (3.5-5.1) mmol/L Chloride 109 H (98-107) mmol/L Carbon Dioxide 26 (22-30) mmol/L Anion Gap 5 mmol/L BUN 11 (9-20) mg/dL Creatinine 0.87 (0.66-1.25) mg/dL Est GFR (CKD-EPI)AfAm >90 (>60 ml/min/1.73 sqM) Est GFR (CKD-EPI)NonAf >90 (>60 ml/min/1.73 sqM) Glucose 95 (74-99) mg/dL Calcium 9.1 (8.4-10.2) mg/dL Total Bilirubin 0.4 (0.2-1.3) mg/dL AST 14 L (17-59) U/L ALT 9 (4-49) U/L Alkaline Phosphatase 58 (38-126) U/L Total Protein 6.1 L (6.3-8.2) g/dL Albumin 3.9 (3.5-5.0) g/dL Urine Color Urine Appearance (Clear) Urine pH (5.0-8.0) Ur Specific [place] (1.001-1.035) Urine Protein (Negative) Urine Glucose (UA) (Negative) Urine Ketones (Negative) Urine Blood (Negative) Urine Nitrite (Negative) Urine Bilirubin (Negative) Urine Urobilinogen (<2.0) mg/dL Ur Leukocyte Esterase (Negative) Urine Opiates Screen (NotDetected) Ur Oxycodone Screen (NotDetected) Urine Methadone Screen (NotDetected) Ur Barbiturates Screen (NotDetected) U Tricyclic Antidepress (NotDetected) Ur Phencyclidine Scrn (NotDetected) Ur Amphetamines Screen (NotDetected) U Methamphetamines Scrn (NotDetected) U Benzodiazepines Scrn (NotDetected) Urine Cocaine Screen (NotDetected) U Marijuana (THC) Screen (NotDetected) SARS-CoV-2 (PCR) (Not Detectd) Disposition Is patient prescribed a controlled substance at d/c from ED?: No Time of Disposition: 17:41 <Roberto Echeverria - Last Filed: 09/01/23 17:41> <Yolis Loco - Last Filed: 09/02/23 06:19> Clinical Impression: Paranoid disorder, Suicidal ideation, Acute psychosis Disposition: TRANSFER TO PSYCH HOSP/UNIT Condition: Stable Referrals: None,Stated [Primary Care Provider] - 1-2 days
[2023-09-01 15:18] LABS: Amphetamine Screen,Urine Not Detected (NotDetected); Barbiturate Screen,Urine Not Detected (NotDetected); Benzodiazepines Screen,Urine Not Detected (NotDetected); Cocaine Screen,Urine Detected (NotDetected); Methadone Screen, Urine Not Detected (NotDetected); Opiate Screen,Urine Not Detected (NotDetected); Oxycodone Screen, Urine Not Detected (NotDetected); Phencyclidine Screen,Urine Not Detected (NotDetected); Tricyclic Antidepressant,Urine Not Detected (NotDetected); Urn Cannabinoid Scrn Not Detected (NotDetected)
[2023-09-02 02:19] LABS: Appearance,Urine Clear (Clear); Bilirubin,Urine Negative (Negative); Blood,Urine Negative (Negative); Color,Urine Light Yellow; Glucose,Urine (UA) Negative (Negative); Ketones,Urine Negative (Negative); Leukocyte Esterase,Urine Negative (Negative); Nitrite,Urine Negative (Negative); PH, Urine 6.5 (5.0-8.0); Protein,Urine Negative (Negative); Specific Gravity,Urine 1.017 (1.001-1.035); Urobilinogen,Urine <2.0 mg/dL (<2.0)
[2023-09-02 02:27] LABS: Basophils # (A) 0.1 k/uL (0-0.2); Basophils % (A) 1 %; Eosinophils # (A) 0.3 k/uL (0-0.7); Eosinophils % (A) 5 %; HCT 41.6 % (39.0-53.0); HGB 14.2 gm/dL (13.0-17.5); Lymphocytes # (A) 2.8 k/uL (1.0-4.8); Lymphocytes % (A) 47 %; MCH 32.2 pg (25.0-35.0); MCHC 34.2 g/dL (31.0-37.0); MCV 94.1 fL (80.0-100.0); Mean Platelet Volume 8.1; Monocytes # (A) 0.4 k/uL (0-1.0); Monocytes % (A) 7 %; Neutrophils # (A) 2.3 k/uL (1.3-7.7); Neutrophils % (A) 38 %; Platelet Count 218 k/uL (150-450); RBC 4.42 m/uL (4.30-5.90); RDW 14.6 % (11.5-15.5); WBC 5.9 k/uL (3.8-10.6)
[2023-09-02 02:32] LABS: African American GFR (CKD) >90 (>60 ml/min/1.73 sqM); Albumin 3.9 g/dL (3.5-5.0); Blood Urea Nitrogen 11 mg/dL (9-20); Non-African American GFR(CKD) >90 (>60 ml/min/1.73 sqM); Total Bilirubin 0.4 mg/dL (0.2-1.3); Total Protein 6.1 g/dL (6.3-8.2)
[2023-09-02 02:38] LABS: ALT 9 U/L (4-49); AST 14 U/L (17-59); Alkaline Phosphatase 58 U/L (38-126); Anion Gap 5 mmol/L; Calcium 9.1 mg/dL (8.4-10.2); Carbon Dioxide 26 mmol/L (22-30); Chloride 109 mmol/L (98-107); Glucose 95 mg/dL (74-99); Potassium 4.3 mmol/L (3.5-5.1); Sodium 140 mmol/L (137-145)
[2023-09-02] MEDS ORDERED: CYCLOBENZAPRINE 10 MG TAB PO PRN (06:39)
[2023-09-02] MEDS: SPIRONOLACTONE 25 MG TAB PO SCH (08:51)
[2023-09-02] MEDS: allopurinoL 100 MG TAB PO SCH (08:52)
[2023-09-02] MEDS: VALPROIC ACID ORAL SOLN 250 MG/5 ML CUP PO SCH (08:52)
[2023-09-02] MEDS: FLUTICASONE NASAL 50MCG/SPRAY 16GM BTL EA NOSTRIL SCH (08:53)
[2023-09-02] MEDS: LABETALOL 5 MG/ML VIAL MDV IVP STA (11:56)
[2023-09-02] MEDS: LORazepam 2 MG/ML INJ IV STA (11:56)
[2023-09-02] MEDS: QUEtiapine 100 MG TAB PO SCH (21:01)
[2023-09-03] MEDS: IBUPROFEN 800 MG TAB PO STA (20:07)
[2023-09-03] MEDS: DICYCLOMINE 20 MG TAB PO PRN (20:07)
[2023-09-04 10:49] VITALS: BP 145/70; PULSE 60; RESP 16; TEMP 98
== END 2023-09-04 10:53 ==
LOC: EC 13:32
DX: F22 Delusional disorders (principal); F23 Brief psychotic disorder; R45.851 Suicidal ideations; F17.200 Nicotine dependence, unspecified, uncomplicated; Z88.8 Allergy status to other drugs, medicaments and biological substances
CPT/HCPCS: 36415; 80053; 80306; 81003; 82075; 85025; 87635; 99285